=== PATIENT | male | born 1970 | race Caucasian/White ===

== ENCOUNTER 2023-07-22 18:06 | Emergency (ER) | payer BC, OTHER ==
[2023-07-22 18:12] VITALS: TEMP 97
--- NOTE | 2023-07-22 18:21 | ERPHSYRPT ---
- History of Present Illness Source: patient Exam Limitations: no limitations Patient Subjective Stated Complaint: pt here for possible foreign body in throat, was eating chicken at 1430 today when started Triage Nursing Assessment: pt alert, walked in, resp easy, skin w/d/p. no drooling, Timing/Duration: today Severity: mild Associated Symptoms: denies symptoms Hx Tetanus, Diphtheria Vaccination/Date Given: No Hx Influenza Vaccination/Date Given: Yes Hx Pneumococcal Vaccination/Date Given: No Immunizations Up to Date: Yes <SARAHI,MARIAM - Last Filed: 07/22/23 18:38> - History of Present Illness Timing/Duration: today (1 pm) Associated Symptoms: denies symptoms <NEHA YANG - Last Filed: 07/22/23 23:16> - History of Present Illness Time Seen by Provider: 07/22/23 18:18 Physician History: pt here for possible foreign body in throat, was eating chicken at 1430 today when started Also feels like something get stuck in middle of chest also. no cough. no difficulty in swolowwing (SARAHI,MARIAM) Discussed risks/benefits of testing, Tx IVF, and Gi/Surg consult with pt CBC, CMP, imaging neck and chest, EKG, Trops, Lactate, Lipase, Amylase and he wishes to proceed. THese are ordered . Results discussed. Pt reports he has had some feelings of food sticking for years but always was able to wash this down. I emphasized that even if this passes he now needs a scoping scheduled to rule out pathology. No Chest pain, but EKG as part of prep and in case this was an unusual variant of cardiac. (NEHA YANG) Allergies/Adverse Reactions: No Known Drug Allergies Allergy (Unverified 07/22/23 18:07) Home Medications: No Reportable Medications [No Reported Medications] 07/22/23 [History] Travel Risk - International Travel Have you traveled outside of the country in past 3 weeks: No - Coronavirus Screening Are you exhibiting any of the following symptoms?: No Close contact with a COVID-19 positive Pt in past 14-21 Days: No - Vaccine Status Have you recieved a Covid-19 vaccination: Yes Legal Recovery Specialist: Unknown - Vaccination Dates Date of 2cond Vaccination (if applicable): 2020 Dates if Unknown: ? <SARAHI,MARIAM - Last Filed: 07/22/23 18:38> - Review of Systems Constitutional: No Fever, No Chills Eyes: No Symptoms Ears, Nose, & Throat: No Symptoms, Throat Pain Respiratory: No Cough, No Dyspnea Cardiac: No Chest Pain, No Edema, No Syncope Abdominal/Gastrointestinal: No Abdominal Pain, No Nausea, No Vomiting, No Diarrhea Genitourinary Symptoms: No Dysuria Musculoskeletal: No Back Pain, No Neck Pain Skin: No Rash Neurological: No Dizziness, No Focal Weakness, No Sensory Changes Psychological: No Symptoms Endocrine: No Symptoms All Other Systems: Reviewed and Negative <BE MCCLAINSH - Last Filed: 07/22/23 18:38> - Past Medical History Pertinent Past Medical History: No - Past Surgical History Past Surgical History: No - Social History Smoking Status: Never smoker Exposure to second hand smoke: No Drug Use: none Patient Lives Alone: No <BE MCCLAINSH - Last Filed: 07/22/23 18:38> - Past Medical History Pertinent Past Medical History: Yes (pt reports p[rior ep) <YANGNEHA - Last Filed: 07/22/23 23:16> - Physical Exam General Appearance: no apparent distress, alert Eye Exam: PERRL/EOMI, eyes nml inspection Ears, Nose, Throat Exam: normal ENT inspection, TMs normal, pharynx normal, moist mucous membranes, No tonsillar exudate Neck Exam: normal inspection, non-tender, supple, full range of motion Respiratory Exam: normal breath sounds, lungs clear, No respiratory distress Cardiovascular Exam: regular rate/rhythm, normal heart sounds, normal peripheral pulses Gastrointestinal/Abdomen Exam: soft, normal bowel sounds, No tenderness, No mass Back Exam: normal inspection, normal range of motion, No CVA tenderness, No vertebral tenderness Extremity Exam: normal inspection, normal range of motion, pelvis stable Neurologic Exam: alert, oriented x 3, cooperative, normal mood/affect, nml cerebellar function, nml station & gait, sensation nml, No motor deficits Skin Exam: normal color, warm, dry, No rash Lymphatic Exam: No adenopathy SpO2: 99 <MARIAM MCCLAIN - Last Filed: 07/22/23 18:38> - Nursing Vital Signs Nursing Vital Signs: Initial Vital Signs Temperature 97.0 F 07/22/23 18:08 Pulse Rate 58 L 07/22/23 18:08 Respiratory Rate 18 07/22/23 18:08 Blood Pressure 188/101 07/22/23 18:08 O2 Sat by Pulse Oximetry 99 07/22/23 18:08 Pain Scale Pain Intensity 0 - Course Nursing assessment & vital signs reviewed: Yes - Radiology Exams Chest X-ray Interpretation: Reviewed by me Other X-ray Interpretation: Reviewed by me <MARIAM MCCLAIN - Last Filed: 07/22/23 18:38> - Course Nursing assessment & vital signs reviewed: Yes EKG Interpreted by Me: Sinus Zhang, NORMAL AXIS, NORMAL INTERVALS, Other (low voltage) <NEHA YANG - Last Filed: 07/22/23 23:16> Ordered Tests: Active Orders 24 hr Category Date Time Status EKG-ER Only STAT Care 07/22/23 19:08 Active IV Insertion STAT Care 07/22/23 19:08 Active CHEST 2 VIEWS (PA AND LAT) Stat Exams 07/22/23 18:14 Completed NECK SOFT TISSUE Stat Exams 07/22/23 18:14 Completed AMYLASE Stat Lab 07/22/23 19:38 Completed CBC W DIFF Stat Lab 07/22/23 19:38 Completed CMP Stat Lab 07/22/23 19:38 Completed LIPASE Stat Lab 07/22/23 19:38 Completed Lactic Acid Stat Lab 07/22/23 19:08 Completed TROPONIN Q4H Lab 07/22/23 19:38 Completed TROPONIN Q4H Lab 07/22/23 23:15 Ordered TROPONIN Q4H Lab 07/23/23 03:15 Ordered Medication Summary Discontinued Medications Generic Name Dose Route Start Last Admin Trade Name Freq PRN Reason Stop Dose Admin Famotidine 20 mg 07/22/23 19:08 07/22/23 19:52 Famotidine 20 Mg/1 Vial IV 07/22/23 19:09 20 mg STAT ONE Administration Famotidine Confirm 07/22/23 19:42 Famotidine 20 Mg/1 Vial Administered 07/22/23 19:43 Dose 20 mg IV .STK-MED ONE Sodium Chloride 1,000 mls @ 999 mls/hr 07/22/23 19:08 07/22/23 19:52 Sodium Chloride 0.9% 1000 Ml IV 07/22/23 20:08 999 mls/hr .Q1H1M STA Administration Sodium Chloride Confirm 07/22/23 19:42 Sodium Chloride 0.9% 1000 Ml Administered 07/22/23 19:43 Dose 1,000 mls @ .ROUTE .[facility]-MED ONE Lab/Rad Data: Laboratory Result Diagrams 07/22/23 19:38 07/22/23 19:38 Laboratory Results 07/22/23 07/22/23 07/22/23 Range/Units 19:38 19:38 19:38 WBC 11.2 H (4.0-10.5) x10^3/uL RBC 5.25 (4.1-5.6) x10^6/uL Hgb 15.3 (12.5-18.0) g/dL Hct 43.2 (42-50) % MCV 82.3 (78-100) fL MCH 29.1 (26-32) pg MCHC 35.4 (32-36) g/dL RDW 12.5 (11.5-14.0) % Plt Count 200 (150-450) x10^3/uL MPV 9.2 (7.5-11.0) fL Gran % 63.4 (36.0-66.0) % Immature Gran % (Auto) 1.2 H (0.00-0.4) % Nucleat RBC Rel Count 0.0 (0.00-0.1) % Eos # (Auto) 0.37 (0-0.5) x10^3/uL Immature Gran # (Auto) 0.14 H (0.00-0.03) x10^3u/L Absolute Lymphs (auto) 2.66 (1.0-4.6) x10^3/uL Absolute Monos (auto) 0.86 (0.0-1.3) x10^3/uL Absolute Nucleated RBC 0.00 (0.00-0.01) x10^3u/L Lymphocytes % 23.7 L (24.0-44.0) % Monocytes % 7.7 (0.0-12.0) % Eosinophils % 3.3 (0.00-5.0) % Basophils % 0.7 (0.0-0.4) % Absolute Granulocytes 7.11 H (1.4-6.9) x10^3/uL Basophils # 0.08 (0-0.4) x10^3/uL Sodium 138 (137-145) mmol/L Potassium 4.0 (3.5-5.1) mmol/L Chloride 102 (98-107) mmol/L Carbon Dioxide 26 (22-30) mmol/L Anion Gap 14.6 (5-15) MEQ/L BUN 15 (9-20) mg/dL Creatinine 0.95 (0.66-1.25) mg/dL Estimated GFR 95.7 ML/MIN Glucose 99 (74-106) mg/dL Lactic Acid (0.4-2.0) Calcium 9.5 (8.4-10.2) mg/dL Total Bilirubin 1.40 H (0.2-1.3) mg/dL AST 44 (17-59) U/L ALT 69 H (0-50) U/L Alkaline Phosphatase 95 (38-126) U/L Troponin I < 0.012 (0.000-0.034) ng/mL Serum Total Protein 8.3 H (6.3-8.2) g/dL Albumin 4.6 (3.5-5.0) g/dL Amylase 77 (30-110) U/L Lipase 103 (23-300) U/L 07/22/23 Range/Units 19:08 WBC (4.0-10.5) x10^3/uL RBC (4.1-5.6) x10^6/uL Hgb (12.5-18.0) g/dL Hct (42-50) % MCV (78-100) fL MCH (26-32) pg MCHC (32-36) g/dL RDW (11.5-14.0) % Plt Count (150-450) x10^3/uL MPV (7.5-11.0) fL Gran % (36.0-66.0) % Immature Gran % (Auto) (0.00-0.4) % Nucleat RBC Rel Count (0.00-0.1) % Eos # (Auto) (0-0.5) x10^3/uL Immature Gran # (Auto) (0.00-0.03) x10^3u/L Absolute Lymphs (auto) (1.0-4.6) x10^3/uL Absolute Monos (auto) (0.0-1.3) x10^3/uL Absolute Nucleated RBC (0.00-0.01) x10^3u/L Lymphocytes % (24.0-44.0) % Monocytes % (0.0-12.0) % Eosinophils % (0.00-5.0) % Basophils % (0.0-0.4) % Absolute Granulocytes (1.4-6.9) x10^3/uL Basophils # (0-0.4) x10^3/uL Sodium (137-145) mmol/L Potassium (3.5-5.1) mmol/L Chloride (98-107) mmol/L Carbon Dioxide (22-30) mmol/L Anion Gap (5-15) MEQ/L BUN (9-20) mg/dL Creatinine (0.66-1.25) mg/dL Estimated GFR ML/MIN Glucose (74-106) mg/dL Lactic Acid 1.3 (0.4-2.0) Calcium (8.4-10.2) mg/dL Total Bilirubin (0.2-1.3) mg/dL AST (17-59) U/L ALT (0-50) U/L Alkaline Phosphatase (38-126) U/L Troponin I (0.000-0.034) ng/mL Serum Total Protein (6.3-8.2) g/dL Albumin (3.5-5.0) g/dL Amylase (30-110) U/L Lipase (23-300) U/L - Progress Progress: improved Counseled pt/family regarding: diagnosis, need for follow-up, rad results <MARIAM MCCLAIN - Last Filed: 07/22/23 18:38> - Progress Progress: unchanged, re-examined Discussed with Dr.: Weston Berry, Other (Dr. Danielle [facility]) Will see patient in: ED Counseled pt/family regarding: lab results, diagnosis, need for follow-up, rad results <NEHA YANG - Last Filed: 07/22/23 23:16> - Progress Progress Note: 07/22/23 18:[address] Mcclain at change of shift after pt introduction, discussion of results, pending studies and exam/Hx. Pt has failed PO challenge and seems to have impacted FB in esophagus on regular x-ray. We discussed risks/benefits and will consult for scoping to disimpact or other Tx. We will try Dr. Evans first and then seek transfer if not available here. 07/22/23 19:12 The current literature does not seem to support glucagon anymore for Tx of esophageal impaction due to poor results and side effects - discussed risks/benefits with pt and and will hold off pending consultation. . 07/22/23 20:08 Discussed risks/benefits of testing , CBC, CMP, Lactate, Alon, Lipase, EKG and Trops and Tx Pepcid and IVF, with pt and and they wish to proceed, these are ordered and results discussed. 07/22/23 21:[address] Barnett who agrees pt needs scoping in hospital and will see the pt planning for scoping in am. meantime to place in under hospitalist. Consulted with Hospitalist for admission/obs in hospital due to unable to swallow liquids. 07/22/23 22:[address] Regis jin branch operations manager and he is not comfortable to observe pt here overnight and prefers transfer for more emergent scoping . We will therefore consult with [facility] to attempt consult with GI surgeon there. Pt and are OK with this consult and transfer if approved. 07/22/23 22:[address] Danielle in ER at [facility] and he is arranging a conference call to include their GI branch operations manager and will call us back. 07/22/23 23:13 Dr. Danielle accepted as ER to ER transfer after we talked with Dr. Barnett again, who is now at [facility]. (NEHA YANG) Medical Desision Making - Independent Historian Additional History obtained from: Family - Discussion of managment Care discussed with:: specialist Reviewed:: Test results, Need for additional workup Agreed on:: Treatment plan, need for follow-up, decision to admit, place in obs Will see patient: in hospital - Diagnostic Testing Diagnostic test were ordered, analyzed, and reviewed by me: Yes Radiological Interpretation: Reviewed by me - Risk of complications The pt has a mod risk of morbidity or mortality based on: Need for prescription drug management The pt has a high risk of morbidity or mortality based on: Decision regarding hospitilization or escalation of hosp level of care <NEHA YANG - Last Filed: 07/22/23 23:16> - Departure Departure Disposition: Home Critical Care Time: No <MARIAM MCCLAIN - Last Filed: 07/22/23 18:38> - Departure Departure Disposition: Transfer Critical Care Time: No <NEHA YANG - Last Filed: 07/22/23 23:16> - Departure Clinical Impression: Foreign body sensation in throat, Esophageal obstruction due to food impaction Condition: Stable Referrals: HALIE BURNS [Primary Care Provider] - Follow Up with PCP/3 days Instructions: Food Obstruction Additional Instructions: Discharge/Care Plan CINDY BECK was seen on 07/22/23 in the Emergency Room. The patient was counseled regarding Diagnosis,Lab results, Imaging studies, need for follow up and when to return to the Emergency Room. Prescriptions given: Discharge Note I have spoken with the patient and/or caregivers. I have explained the patient's condition, diagnosis and treatment plan based on the information available to me at this time. I have answered the patient's and/or caregiver's questions and addressed any concerns. The patient and/or caregivers have as good understanding of the patient's diagnosis, condition and treatment plan as can be expected at this point. The vital signs have been stable. The patient's condition is stable and appropriate for discharge from the emergency department. The patient will pursue further outpatient evaluation with the primary care physician or other designated or consulting physician as outlined in the josh lizarraga instructions. The patient and/or caregivers are agreeable to this plan of care and follow-up instructions have been explained in detail. The patient and/or caregivers have received these instruction. The patient/and or caregivers are aware that any significant change in condition or worsening of symptoms should prompt an immediate return to this or the closest emergency department or call 911. CINDY BECK was seen on 07/22/23 n the Emergency Room. At that time you were treated for an emergent condition, during your visit Laboratory, Radiology and/or other procedures may have been ordered. It is very important that you follow-up with your Primary Care Physician HALIE BURNS within the next 24-48 hours to review your Emergency Room visit and the final results of testing that was ordered. Some test results such as Urine Cultures, Blood Cultures, and other cultures if ordered will not be finalized for 24-48 hours. If you do not have a Primary Care Provider please call the medical records department at [phone] ext [phone] to obtain a copy of your results or you may sign into our patient portal to obtain these results by visiting us @ [email or web address] and completing the following steps: 1. Click on the Patient Portal link 2. Click the Patient Self Enrollment Link to complete the enrollment form and entering your 3. Once the enrollment form is completed you will receive an email with a temporary ID and password at the email address you provided. 4. Next choose a user name and password. Your user name must be at least 4 characters long and your password must be at least 4 characters long. 5. Choose a security question from the list and provide your answer to the question. If you already have signed into the Health Portal you may access your Health Care Information 06/03 by the following steps: 1. Login to our website @ [email or web address] 2. Enter your original user name and password. FAQS The [facility] Health Portal is an online tool that contains your Lab Results, Radiology Reports, Visit History, Discharge Instructions and Health Summary Lab and Radiology Results will not be available for 72 hours on the portal. The Portal is a secure site, passwords are encryted and URLs are re-written so they cannot be copied and pasted. You and authorized family members are the only ones who can access your Portal. Also there is a timeout feature that protects your information if you leave the Portal page open. If you have technical difficulty please use the Contact Us link on the page this will allow you to submit any questions you have regarding the Portal or you may contact the Medical Record Department at [phone] ext [phone].
[2023-07-22] MEDS ORDERED: Pepcid 20 MG VIAL IV ONE ×2 (19:08→19:42)
[2023-07-22] MEDS ORDERED: Sodium Chloride 0.9% 1000 ML 1,000 ML IV STA (19:08)
[2023-07-22 19:40] LABS: Absolute Neutrophil Ct (ANC) 7.11 x10^3/uL (1.4-6.9); BASOPHIL % 0.7 % (0.0-0.4); Basophil (Absolute #) 0.08 x10^3/uL (0-0.4); Eosinophil % 3.3 % (0.00-5.0); Eosinophil (Absolute #) 0.37 x10^3/uL (0-0.5); Hematocrit 43.2 % (42-50); Hemoglobin 15.3 g/dL (12.5-18.0); IMMATURE GRAN # 0.14 x10^3u/L (0.00-0.03); IMMATURE GRAN % 1.2 % (0.00-0.4); Lymphocyte (Absolute #) 2.66 x10^3/uL (1.0-4.6); Lymphocytes % 23.7 % (24.0-44.0); Mean Cell Volume 82.3 fL (78-100); Mean Corpuscular Hemoglobin 29.1 pg (26-32); Mean Corpuscular Hgb Concent. 35.4 g/dL (32-36); Mean Platelet Volume 9.2 fL (7.5-11.0); Monocyte (Absolute #) 0.86 x10^3/uL (0.0-1.3); Monocytes % 7.7 % (0.0-12.0); Neutrophil % 63.4 % (36.0-66.0); Platelet Count 200 x10^3/uL (150-450); Red Blood Count 5.25 x10^6/uL (4.1-5.6); Red Cell Distribution Width 12.5 % (11.5-14.0); White Blood Count 11.2 x10^3/uL (4.0-10.5)
[2023-07-22] MEDS ORDERED: Sodium Chloride 0.9% 1000 ML 1,000 ML ONE (19:42)
[2023-07-22 19:54] LABS: ALBUMIN 4.6 g/dL (3.5-5.0); ANION GAP 14.6 MEQ/L (5-15); BILIRUBIN,TOTAL 1.4 mg/dL (0.2-1.3); Calcium 9.5 mg/dL (8.4-10.2); Creatinine 1 0.95 mg/dL (0.66-1.25); EST GLOMERULAR FILTRATION RATE 95.7 ML/MIN; Total Protein 8.3 g/dL (6.3-8.2)
--- NOTE | 2023-07-22 21:17 | XRAY ---
Indication: Chicken stuck in throat. Comparison: None AP/lateral soft tissue neck negative for radiopaque foreign body. Normal epiglottis. Osseous structures intact with mild multilevel cervical degenerative changes.
--- NOTE | 2023-07-22 21:17 | XRAY ---
Indication: Midsternal chest pain. Chicken stuck in throat. Comparison: None PA/lateral chest inflated and clear with incidental tiny calcified granulomas. No radiopaque foreign body. Heart not enlarged. Bony thorax intact with mild degenerative changes. Impression: Nonacute chest with chronic features.
[2023-07-22 23:16] VITALS: BP 142/96; PULSE 61; RESP 16; O2SAT 98
== END 2023-07-22 23:50 | disposition short-term general hospital (02) ==
LOC: ED 18:06
DX: T18.128A Food in esophagus causing other injury, initial encounter (principal); R09.A2 Foreign body sensation, throat; W44.F3XA Food entering into or through a natural orifice, initial encounter
CPT/HCPCS: 36000; 36415; 70360; 71046; 80053; 82150; 83605; 83690; 84484; 85025; 93005; 96374; 99285